=== PATIENT | male | born 2000 | race Caucasian/White ===

== ENCOUNTER 2022-05-10 06:32 | Day surgery (SDC) | payer MEDICAID ==
[2022-05-10] VITALS (7 sets, daily range): BP systolic 106–119; BP diastolic 50–73
[~2022-05-10] VITALS: Ht 172.7 cm; Wt 60.7 kg
[2022-05-10] MEDS ORDERED: ASPI-1264 PO (07:02)
[2022-05-10] MEDS ORDERED: normal saline 1000ml 1,000 ML IV SCH (07:05)
[2022-05-10 07:53] LABS: BASOPHILS % (AUTO) 0.8 % (0-1); EOSINOPHILS # (AUTO) 0.2 X10'3 (0-0.9); EOSINOPHILS % (AUTO) 4.5 % (0-6); HEMATOCRIT 45.8 % (42.0-52.0); HEMOGLOBIN 15.5 g/dl (14.0-17.9); LYMPHOCYTES # (AUTO) 2.1 X10'3 (1.1-4.8); LYMPHOCYTES % (AUTO) 45.7 % (21-51); MEAN CORPUSCULAR HEMOGLOBIN 30.2 PG (27.0-31.0); MEAN CORPUSCULAR HGB CONC 33.8 g/dL (33.0-36.5); MEAN CORPUSCULAR VOLUME 89.4 FL (78-98); MEAN PLATELET VOLUME 7.9 FL (7.4-10.4); MONOCYTES # (AUTO) 0.4 X10'3 (0-0.9); MONOCYTES % (AUTO) 7.9 % (2-12); NEUTROPHILS # (AUTO) 1.9 X10'3 (1.8-7.7); NEUTROPHILS % (AUTO) 41.1 % (42-75); PLATELET COUNT 182 X10'3 (140-440); RED BLOOD COUNT 5.12 X10'6 (4.70-6.10); RED CELL DISTRIBUTION WIDTH 12.8 % (11.5-14.5); WHITE BLOOD COUNT 4.7 X10'3 (4.5-11.0)
[2022-05-10 08:00] LABS: ANION GAP 10 (8-16); BLOOD UREA NITROGEN 14 MG/DL (7-18); BUN/CREATININE RATIO 18.2 (5.4-32.0); CALCIUM 8.4 MG/DL (8.5-10.1); CHLORIDE 107 MMOL/L (99-107); CREATININE 0.77 MG/DL (0.60-1.10); GLUCOSE 92 MG/DL (70-104); POTASSIUM 3.8 MMOL/L (3.5-5.1); SODIUM 142 MMOL/L (135-145); TOTAL CARBON DIOXIDE 25.5 MMOL/L (24-32); eGFR > 90 ML/MIN
[2022-05-10] MEDS ORDERED: midazolam 1 mg/ML 2ml injection ONE ×2 (09:05→10:36)
[2022-05-10] MEDS ORDERED: LIDOcaine 1% (10mg/ml) 2ml vial ONE (09:05)
[2022-05-10] MEDS ORDERED: fentaNYL/PF 50MCG/1 ML 2ML syringe ONE ×2 (09:05→10:36)
[2022-05-10] MEDS ORDERED: iohexol 300mg/ml 100ml inj. ONE (09:06)
[2022-05-10] MEDS ORDERED: heparin 1,000 UNITS/NS 500ml 500 ML ONE (09:06)
[2022-05-10] MEDS ORDERED: diphenhydrAMINE 50 mg/ml inj ONE (10:09)
== END 2022-05-10 13:10 | disposition home or self-care (01) ==
LOC: SSTAY O 06:32
PROVIDERS: ATTEND Radiology Vascular & Interventional Radiology
DX: I82.221 Chronic embolism and thrombosis of inferior vena cava (principal); G80.9 Cerebral palsy, unspecified; Z79.899 Other long term (current) drug therapy; Z98.890 Other specified postprocedural states
CPT/HCPCS: 36010; 36415; 75825; 76937; 80048; 85025; 86885; 86900; 86901; 93979; 99152; 99153; C1769; C1894; J1200; J1644; J2250; J3010; J3490; J7030; Q9967; A4620; A6213

== ENCOUNTER 2024-02-23 07:49 | Outpatient (CLI) | payer MEDICAID ==
[~2024-02-23 07:49] MED LIST: ASPI-1264 PO
== END 2024-02-23 23:59 | disposition home or self-care (01) ==
LOC: RAD 07:49
PROVIDERS: ATTEND Family Medicine
DX: R10.11 Right upper quadrant pain (principal)
CPT/HCPCS: 76700